=== PATIENT | female | born 1960 | race Caucasian/White ===

== ENCOUNTER 2018-02-24 12:37 | Inpatient (IN) | payer OTHER ==
[~2018-02-24] VITALS: Ht 157.5 cm; Wt 59.7 kg
[~2018-02-24 12:37] MED LIST: ASPIRIN EC325 MG PO; LOPRESSOR25 MG PO; LOSARTAN POTAS100 MG PO; NAPROSYN500 MG PO
[2018-02-24 13:20] LABS: BASOPHIL (%) 0.1 % (0-1); EOSINOPHIL (%) 0 % (0-5); HEMATOCRIT 38.8 % (36.0-46.0); HEMOGLOBIN 13.5 G/DL (11.9-15.5); IMMATURE GRANULOCYTE (%) 0.3 % (0.0-0.7); LYMPHOCYTE (%) 5.6 % (15-42); LYMPHOCYTE COUNT 0.8 K/uL (1.0-2.8); MCH 32.3 PG (29.0-34.0); MCHC 34.8 G/DL (30.0-36.0); MCV 92.8 FL (83-99); MONOCYTE (%) 7.8 % (3-12); MONOCYTE COUNT 1.1 K/uL (0-0.8); NEUTROPHIL (%) 86.2 % (45-76); NEUTROPHIL COUNT 12.2 K/uL (1.8-6.4); PLATELET COUNT 197 K/uL (156-360); RBC DIS.WIDTH-CV 12.2 % (11.8-14.6); RBC DIS.WIDTH-SD 41.7 % (39-53); RED BLOOD COUNT 4.18 M/uL (3.80-5.20); WHITE BLOOD COUNT 14.1 K/uL (4.1-10.2)
[2018-02-24 13:31] LABS: CHLORIDE 99 mEq/L (99-109); POTASSIUM 3.7 mEq/L (3.7-5.4); SODIUM 135 mEq/L (136-147)
[2018-02-24 13:32] LABS: MAGNESIUM 2.1 mg/dL (1.3-2.7)
[2018-02-24 13:34] LABS: GLUCOSE 111 mg/dL (70-99); TOTAL PROTEIN 6.8 g/dL (6.4-8.3)
[2018-02-24 13:36] LABS: TOTAL BILIRUBIN 0.6 mg/dL (0.0-1.0)
[2018-02-24 13:37] LABS: ALKALINE PHOSPHATASE 69 IU/L (3-129)
[2018-02-24 13:38] LABS: CREATININE 0.8 mg/dL (0.6-1.3); GFR ESTIMATE (CALCULATED) > 59 mL/min/
[2018-02-24 13:39] LABS: AST (GOT) 20 IU/L (2-34); UREA NITROGEN (BUN) 8 mg/dL (9-23)
[2018-02-24 13:40] LABS: ALT (GPT) 18 IU/L (3-49)
[2018-02-24 13:42] LABS: TROP-I INTERPRETATION NEGATIVE; TROPONIN-I < 0.01 ng/mL (0.0-0.30)
[2018-02-24] MEDS ORDERED: TYLENOL REGULA325 MG PO (15:42)
[2018-02-24] MEDS ORDERED: ASPIRIN325 MG PO (15:42)
[2018-02-24] MEDS ORDERED: AMLODIPINE BESY10 MG PO (15:42)
[2018-02-24] MEDS ORDERED: MOTRIN IB200 MG PO (15:43)
[2018-02-24 16:08] LABS: TROP-I INTERPRETATION NEGATIVE; TROPONIN-I 0.02 ng/mL (0.0-0.30)
[2018-02-24 18:05] VITALS: BP 121/66
[2018-02-24 18:27] VITALS: BP 113/59
[2018-02-24 18:28] VITALS: BP 112/60; BP 113/68
[2018-02-24 19:29] VITALS: BP 135/68
[2018-02-24 21:05] LABS: TROP-I INTERPRETATION NEGATIVE; TROPONIN-I < 0.01 ng/mL (0.0-0.30)
[2018-02-24 23:53] VITALS: BP 142/77
[2018-02-25 03:10] LABS: HEMATOCRIT 36.8 % (36.0-46.0); MCH 32.7 PG (29.0-34.0); MCHC 35.3 G/DL (30.0-36.0); MCV 92.5 FL (83-99); PLATELET COUNT 187 K/uL (156-360); RBC DIS.WIDTH-CV 12.2 % (11.8-14.6); RBC DIS.WIDTH-SD 41.8 % (39-53); RED BLOOD COUNT 3.98 M/uL (3.80-5.20); WHITE BLOOD COUNT 17.2 K/uL (4.1-10.2)
[2018-02-25 03:30] LABS: CHLORIDE 101 mEq/L (99-109); POTASSIUM 3.8 mEq/L (3.7-5.4); SODIUM 134 mEq/L (136-147)
[2018-02-25 03:31] LABS: GLUCOSE 132 mg/dL (70-99)
[2018-02-25 03:35] LABS: CREATININE 0.7 mg/dL (0.6-1.3); GFR ESTIMATE (CALCULATED) > 59 mL/min/
[2018-02-25 03:36] LABS: UREA NITROGEN (BUN) 6 mg/dL (9-23)
[2018-02-25 03:41] LABS: TROP-I INTERPRETATION NEGATIVE; TROPONIN-I 0.02 ng/mL (0.0-0.30)
[2018-02-25 05:20] VITALS: BP 118/58
[2018-02-25 06:27] LABS: HDL CHOLESTEROL 54 MG/DL (Desirable>=50); LDL CHOLESTEROL 73 mg/dL (Desirable<100); NON-HDL CHOLESTEROL 87 mg/dL (Desirable<160); TOTAL CHOLESTEROL 141 mg/dL (Desirable<200); TRIGLYCERIDES 71 MG/DL (Normal: <150)
[2018-02-25 08:51] LABS: APPEARANCE CLEAR ((CLEAR)); BILIRUBIN NEGATIVE; BLOOD SMALL; COLOR YELLOW ((YELLOW)); GLUCOSE (STRIP) NEGATIVE; KETONES 80; LEUKOCYTES NEGATIVE; NITRITE NEGATIVE; PROTEIN (STRIP) NEGATIVE; SPECIFIC GRAVITY 1.013 (1.000-1.030); UROBILINOGEN 0.2 MG/DL (0.2-1.0)
[2018-02-25 08:56] LABS: BACTERIA NONE SEEN /HPF; EPITHELIAL CELLS NONE SEEN /HPF; MUCUS TRACE /LPF; RED BLOOD CELLS 0-5 /HPF (0-5); UCUL ADDED? NO; WHITE BLOOD CELLS 0-5 /HPF (0-5)
[2018-02-25 10:01] LABS: HEMOGLOBIN A1c (GLYCOHEMOGLOB) 5.3 % (Below 5.7)
[2018-02-25 19:04] VITALS: BP 118/62
[2018-02-25 23:41] VITALS: BP 108/58
[2018-02-26 04:45] VITALS: BP 148/71
[2018-02-26 05:40] LABS: HEMATOCRIT 34.1 % (36.0-46.0); HEMOGLOBIN 11.7 G/DL (11.9-15.5); MCH 31.8 PG (29.0-34.0); MCHC 34.3 G/DL (30.0-36.0); MCV 92.7 FL (83-99); PLATELET COUNT 185 K/uL (156-360); RBC DIS.WIDTH-CV 12.3 % (11.8-14.6); RBC DIS.WIDTH-SD 41.9 % (39-53); RED BLOOD COUNT 3.68 M/uL (3.80-5.20)
[2018-02-26 08:00] VITALS: BP 128/76
[2018-02-26 19:15] VITALS: BP 166/78
[2018-02-27] VITALS (7 sets, daily range): BP systolic 137–162; BP diastolic 71–93
[2018-02-28 04:27] VITALS: BP 136/76
[2018-02-28 07:00] VITALS: BP 156/92
[2018-02-28] MEDS ORDERED: CEFTIN500 MG PO (10:37)
== END 2018-02-28 11:45 | disposition home or self-care (01) | DRG 868 ==
LOC: EME 12:37 → EDOF 16:29 → ENRESERV 16:33 → 4SOUTH 17:58
PROVIDERS: Emergency Medicine; Hospitalist; Physician Assistant
DX: A28.0 Pasteurellosis (principal); J02.9 Acute pharyngitis, unspecified; I10 Essential (primary) hypertension; I25.10 Atherosclerotic heart disease of native coronary artery without angina pectoris; W55.09XA Other contact with cat, initial encounter; R07.9 Chest pain, unspecified; E78.5 Hyperlipidemia, unspecified; M41.9 Scoliosis, unspecified; I42.9 Cardiomyopathy, unspecified; Z79.82 Long term (current) use of aspirin
CPT/HCPCS: 71045; 80048; 80053; 80061; 81003; 83036; 83605; 83735; 84484; 85025; 85027; 87040; 87185; 87651 90; 87801; 93005; 93306; 99281; 99285; G0378; J0696; J1644; J2405; J2543; J7030; J7050; J7120